=== PATIENT | male | born 1970 | race African-American/Black ===

== ENCOUNTER 2020-01-07 23:23 | Emergency (ER) | payer OTHER ==
[~2020-01-07] VITALS: Ht 193 cm; Wt 97.1 kg
[2020-01-07 23:26] VITALS: BP 164/104
[2020-01-07 23:40] LABS: ABSOLUTE NEUTROPHILS 5.2 thou/uL (1.4-8.2); BASOPHILS 0.6 % (0.0-2.0); EOSINOPHILS 0.6 % (0.0-3.0); HEMATOCRIT 38.6 % (42.0-52.0); HEMOGLOBIN 13.2 gm/dL (14.0-18.0); LYMPHOCYTES 24.2 % (24.0-44.0); MCHC 34.3 g/dL (28.0-37.0); MCV 90.4 fL (80.0-100.0); PLATELET COUNT 155 thou/uL (150-400); POLYS 65.6 % (36.0-66.0); RBC 4.27 mil/uL (4.50-6.00)
[2020-01-07 23:43] LABS: CALCIUM 8.3 mg/dL (8.5-10.1); CREATININE 1.6 mg/dL (0.7-1.3); POTASSIUM 3.6 mmol/L (3.5-5.1)
[2020-01-07 23:48] LABS: INR 1.1; PROTIME 10.9 Seconds (9.3-11.4)
[2020-01-07 23:50] LABS: ALBUMIN 3.7 g/dL (3.4-5.0); TOTAL BILIRUBIN 0.6 mg/dL (0.2-1.0)
--- NOTE | 2020-01-08 07:24 | EKG ---
[facility] [place] [address] ELECTROCARDIOGRAM REPORT Name: BRAXTON MILLS Room #: [facility] [id number] Admission: 01/07/20 Attend Phys: Discharge: 01/08/20 Date of : 68 Report #: [id number] THIS REPORT FOR: cc: [facility] - Clinic physician unknown [facility] - Clinic physician unknown Davi Yañez MD [facility] ~ THIS REPORT FOR: //name// [facility] ED Test Date: 2020-01-07 Test Time: 23:53:56 Pat Name: BRAXTON MILLS Department: Room: Gender: M [employer]: [facility] : 1970 Requested By: Slim Garcia Order Number: [id number] MD: Davi Yañez Measurements Intervals [place] Rate: 92 P: 45 SC: 164 QRS: -5 QRSD: 101 T: 50 QT: 394 QTc: 488 Interpretive Statements Sinus rhythm Probable left atrial enlargement RSR' in V1 or V2, probably normal variant Borderline T abnormalities, lateral leads Borderline prolonged QT interval Baseline wander in lead(s) I,II,aVR No previous ECG available for comparison Electronically Signed On 01-08-2020 7:24:45 CDT by Davi Yañez [email or web address] <ELECTRONICALLY SIGNED> By: Davi Yañez MD, [facility] 01/08/20 0724 52 235 Davi Yañez MD, [facility] /EPI
== END 2020-01-08 00:37 | disposition short-term general hospital (02) ==
LOC: ER 23:23
PROVIDERS: Emergency Medicine
DX: S62.303B Unspecified fracture of third metacarpal bone, left hand, initial encounter for open fracture (principal); S62.305B Unspecified fracture of fourth metacarpal bone, left hand, initial encounter for open fracture; S62.307B Unspecified fracture of fifth metacarpal bone, left hand, initial encounter for open fracture; R42 Dizziness and giddiness; F17.210 Nicotine dependence, cigarettes, uncomplicated; Z88.8 Allergy status to other drugs, medicaments and biological substances; W34.09XA Accidental discharge from other specified firearms, initial encounter; Y93.89 Activity, other specified; Y92.89 Other specified places as the place of occurrence of the external cause; Y99.8 Other external cause status